=== PATIENT | male | born 1995 ===

== ENCOUNTER 2018-01-31 19:06 | Outpatient (CLI) | payer SELFPAY | END 2018-01-31 19:07 | disposition EMS.NT | LOC: EMS 19:06 | PROVIDERS: ATTEND Surgery | DX: S09.90XA Unspecified injury of head, initial encounter (principal); R45.1 Restlessness and agitation; W17.89XA Other fall from one level to another, initial encounter; Y93.51 Activity, roller skating (inline) and skateboarding; Y92.830 Public park as the place of occurrence of the external cause ==